=== PATIENT | female | born 1975 | race African-American/Black ===

== ENCOUNTER 2016-10-22 21:26 | Emergency (ER) | payer MEDICAID ==
[~2016-10-22] VITALS: Ht 170.2 cm; Wt 72.1 kg
[2016-10-22] MEDS ORDERED: KETOROLAC 60MG/2ML VIAL IM STA (22:29)
[2016-10-22 23:00] VITALS: BP 137/82
[2016-10-22 23:04] LABS: EOSINOPHILS % 0.6 % (0.0-5.0); HEMATOCRIT. 38.9 % (36.0-48.0); LYMPHOCYTES % 37.1 % (20.0-50.0); MEAN CORPUSCULAR HEMOGLOBIN 29.8 pg (28.0-32.0); MEAN CORPUSCULAR HGB CONC 33.5 g/dL (31.0-37.0); MEAN CORPUSCULAR VOLUME 88.8 fL (81.0-99.0); MONOCYTES % 4.6 % (2.0-8.0); NEUTROPHILS % 56.7 % (40.0-76.0); PLATELET 232 x1000/uL (130-400); RED BLOOD CELL COUNT 4.38 mill/uL (4.2-5.4); RED CELL DISTRIBUTION WIDTH 14.2 % (11.6-14.6); WHITE BLOOD COUNT 7.2 x1000/uL (4.5-11.0)
[2016-10-22 23:07] LABS: CHLORIDE 108 mEq/L (98-107)
[2016-10-22 23:08] LABS: CLARITY URINE CLOUDY (CLEAR); COLOR URINE YELLOW (YELLOW); GLUCOSE URINE NEGATIVE (NEGATIVE); KETONES URINE NEGATIVE (NEGATIVE); LEUKOCYTE ESTERASE URINE 3+ (NEGATIVE); NITRITE URINE POSITIVE (NEGATIVE); OCCULT BLOOD URINE 3+ (NEGATIVE); PH URINE 6.5 (4.5-8.0); PROTEIN URINE NEGATIVE (NEGATIVE); SPECIFIC GRAVITY URINE 1.011 (1.005-1.030)
[2016-10-22 23:09] LABS: HCG SCREEN NEGATIVE
[2016-10-22 23:12] LABS: ANION GAP 11; CALCIUM 8.9 mg/dL (8.5-10.1); CARBON DIOXIDE 28 mEq/L (21-32); INDEX HEMOLYSI 1 (1-3); INDEX ICTERIC 1 (1-4); INDEX LIPEMIC 1 (1-3); LIPASE 109 IU/L (73-393); UREA NITROGEN BLOOD 9 mg/dL (7-21)
[2016-10-22 23:14] LABS: eGFR > 60 mL/min (>60)
[2016-10-22 23:15] LABS: BACTERIA URINE 3+; SQUAMOUS EPITHELIAL CELL URINE FEW /lpf (RARE/1+); WBC URINE 50-100 /hpf (0-2)
[2016-10-22] MEDS ORDERED: CEPHALEXIN 500MG CAPSULE PO ONE (23:15)
== END 2016-10-23 00:30 | disposition home or self-care (01) ==
LOC: ER 21:31
DX: N39.0 Urinary tract infection, site not specified (principal); F15.10 Other stimulant abuse, uncomplicated
CPT/HCPCS: 36415; 80048; 81001; 83690; 84703; 85025; 96372; 99284; J1885

== ENCOUNTER 2017-04-18 08:30 | Emergency (ER) | payer MEDICAID ==
[~2017-04-18] VITALS: Ht 170.2 cm; Wt 61.0 kg
[2017-04-18 09:06] VITALS: BP 108/66
[2017-04-18 09:12] LABS: HEMATOCRIT. 40.6 % (36.0-48.0); HEMOGLOBIN. 13.7 g/dL (12.0-16.0); MEAN CORPUSCULAR HEMOGLOBIN 29.9 pg (28.0-32.0); MEAN CORPUSCULAR VOLUME 88.4 fL (81.0-99.0); MEAN PLATELET VOLUME 9.7 fl (7.4-10.4); PLATELET 181 x1000/uL (130-400); RED BLOOD CELL COUNT 4.59 mill/uL (4.2-5.4)
[2017-04-18] MEDS ORDERED: ONDANSETRON HCL 4MG/2ML VIAL IV ONE ×2 (09:15→11:30)
[2017-04-18] MEDS ORDERED: FAMOTIDINE 20MG/2ML VIAL IV ONE (09:15)
[2017-04-18] MEDS ORDERED: SODIUM CHLORIDE 0.9% 1,000 ML IV ONE (09:15)
[2017-04-18 09:19] LABS: CHLORIDE 103 mEq/L (98-107)
[2017-04-18 09:27] LABS: CARBON DIOXIDE 23 mEq/L (21-32)
[2017-04-18 09:36] LABS: CLARITY URINE CLEAR (CLEAR); COLOR URINE YELLOW (YELLOW); GLUCOSE URINE NEGATIVE (NEGATIVE); KETONES URINE NEGATIVE (NEGATIVE); LEUKOCYTE ESTERASE URINE TRACE (NEGATIVE); NITRITE URINE NEGATIVE (NEGATIVE); OCCULT BLOOD URINE TRACE (NEGATIVE); PH URINE >=9.0 (4.5-8.0); PROTEIN URINE NEGATIVE (NEGATIVE); SPECIFIC GRAVITY URINE 1.014 (1.005-1.030); UROBILINOGEN URINE 0.2 E.U./dL (0.2-1.0)
[2017-04-18 10:06] LABS: PLATELET ESTIMATE NORMAL
[2017-04-18] MEDS ORDERED: ACETAMINOPHEN 500MG TABLET PO ONE (11:30)
== END 2017-04-18 11:45 | disposition home or self-care (01) ==
LOC: ER 08:38
DX: K52.9 Noninfective gastroenteritis and colitis, unspecified (principal); K21.9 Gastro-esophageal reflux disease without esophagitis; Q61.3 Polycystic kidney, unspecified; F17.210 Nicotine dependence, cigarettes, uncomplicated; F15.10 Other stimulant abuse, uncomplicated
CPT/HCPCS: 36415; 76705; 80053; 81001; 81025; 83690; 85025; 96361; 96374; 96375; 99285; J2405; J3490; J7030

== ENCOUNTER 2018-09-25 17:14 | Emergency (ER) | payer MEDICAID ==
[~2018-09-25] VITALS: Ht 170.2 cm; Wt 64.0 kg
[2018-09-25 17:33] VITALS: BP 139/88
== END 2018-09-25 22:42 | disposition left against medical advice (07) ==
LOC: ER 17:14
DX: Z53.21 Procedure and treatment not carried out due to patient leaving prior to being seen by health care provider (principal)

== ENCOUNTER 2018-09-26 21:15 | Emergency (ER) | payer MEDICAID ==
[~2018-09-26] VITALS: Ht 170.2 cm; Wt 66.0 kg
[2018-09-26] MEDS ORDERED: ACETAMINOPHEN 325MG TABLET PO ONE (23:00)
[2018-09-26 23:25] LABS: COLOR URINE YELLOW (YELLOW); KETONES URINE NEGATIVE (NEGATIVE); LEUKOCYTE ESTERASE URINE 1+ (NEGATIVE); NITRITE URINE POSITIVE (NEGATIVE); OCCULT BLOOD URINE 3+ (NEGATIVE); PROTEIN URINE NEGATIVE (NEGATIVE); UROBILINOGEN URINE 0.2 E.U./dL (0.2-1.0)
[2018-09-26 23:34] LABS: BASOPHILS % 1.3 % (0.0-2.0); HEMATOCRIT. 39.1 % (36.0-48.0); HEMOGLOBIN. 12.6 g/dL (12.0-16.0); MEAN CORPUSCULAR HEMOGLOBIN 29.3 pg (28.0-32.0); MEAN CORPUSCULAR VOLUME 90.8 fL (81.0-99.0); MEAN PLATELET VOLUME 9.8 fl (7.4-10.4); MONOCYTES % 4.9 % (2.0-8.0); NEUTROPHILS % 45.8 % (40.0-76.0); PLATELET 203 x1000/uL (130-400); RED BLOOD CELL COUNT 4.31 mill/uL (4.2-5.4); RED CELL DISTRIBUTION WIDTH 14.7 % (11.6-14.6)
[2018-09-26 23:34] LABS: CLARITY URINE HAZY (CLEAR)
[2018-09-26 23:42] LABS: CHLORIDE 109 mEq/L (98-107)
[2018-09-26 23:50] LABS: C REACTIVE PROTEIN QUANT 0.3 mg/L (0.0-3.0); HCG SCREEN NEGATIVE
[2018-09-27] MEDS ORDERED: KETOROLAC 15MG/ML VIAL IV ONE (01:15)
[2018-09-27 03:59] VITALS: BP 145/94
== END 2018-09-27 04:00 | disposition home or self-care (01) ==
LOC: ER 21:15
DX: N93.8 Other specified abnormal uterine and vaginal bleeding (principal); F15.10 Other stimulant abuse, uncomplicated
CPT/HCPCS: 36415; 76856; 80053; 81003; 81025; 83690; 84702; 84703; 85025; 85610; 86140; 96374; 99284; J1885; Z7610

== ENCOUNTER 2020-01-17 13:25 | Emergency (ER) | payer MEDICAID ==
[~2020-01-17] VITALS: Ht 170.2 cm; Wt 75.0 kg
[2020-01-17 13:36] VITALS: BP 141/92
[2020-01-17 14:50] LABS: CLARITY URINE CLOUDY (CLEAR); COLOR URINE ORANGE (YELLOW); KETONES URINE NEGATIVE (NEGATIVE); LEUKOCYTE ESTERASE URINE 3+ (NEGATIVE); NITRITE URINE POSITIVE (NEGATIVE); OCCULT BLOOD URINE 3+ (NEGATIVE); PH URINE 5.5 (4.5-8.0); PROTEIN URINE 1+ (NEGATIVE); SPECIFIC GRAVITY URINE 1.015 (1.005-1.030); UROBILINOGEN URINE 0.2 E.U./dL (0.2-1.0)
[2020-01-17] MEDS ORDERED: AZITHROMYCIN 500 MG TABLET PO NR (15:30)
[2020-01-17] MEDS ORDERED: CEFTRIAXONE SODIUM 250 MG/VIAL IM NR (15:30)
[2020-01-17] MEDS ORDERED: LIDOCAINE HCL/PF 1% 10 MG/ML 5ML VIAL IJ NR (15:45)
[2020-01-17] MEDS ORDERED: ACETAMINOPHEN 325MG TABLET PO NR (16:00)
== END 2020-01-17 16:20 | disposition home or self-care (01) ==
LOC: ER 13:25
DX: N39.0 Urinary tract infection, site not specified (principal)
CPT/HCPCS: 81003; 81025; 87086; 96372; 99283; J0696; J3490

== ENCOUNTER 2021-03-06 14:41 | Emergency (ER) | payer MEDICAID ==
[~2021-03-06] VITALS: Ht 170.2 cm; Wt 77.0 kg
[2021-03-06] MEDS ORDERED: SODIUM CHLORIDE 0.9% 1,000 ML IV ONE (15:15)
[2021-03-06 15:38] LABS: CLARITY URINE CLEAR (CLEAR); COLOR URINE ORANGE (YELLOW); KETONES URINE NEGATIVE (NEGATIVE); LEUKOCYTE ESTERASE URINE 1+ (NEGATIVE); NITRITE URINE NEGATIVE (NEGATIVE); OCCULT BLOOD URINE 3+ (NEGATIVE); PH URINE 7.5 (4.5-8.0); PROTEIN URINE 1+ (NEGATIVE); SPECIFIC GRAVITY URINE 1.018 (1.005-1.030); UROBILINOGEN URINE 0.2 E.U./dL (0.2-1.0)
[2021-03-06 15:46] LABS: BASOPHILS % 1.6 % (0.0-2.0); EOSINOPHILS % 1.4 % (0.0-5.0); HEMATOCRIT. 37.4 % (36.0-48.0); LYMPHOCYTES % 39.8 % (20.0-50.0); MEAN CORPUSCULAR HEMOGLOBIN 30.4 pg (28.0-32.0); MEAN CORPUSCULAR VOLUME 87.5 fL (81.0-99.0); MEAN PLATELET VOLUME 9.5 fl (7.4-10.4); MONOCYTES % 6.2 % (2.0-8.0); PLATELET 230 x1000/uL (130-400); RED BLOOD CELL COUNT 4.27 mill/uL (4.2-5.4); RED CELL DISTRIBUTION WIDTH 14.3 % (11.6-14.6)
[2021-03-06 15:52] LABS: CHLORIDE 108 mEq/L (98-107)
[2021-03-06 16:16] LABS: B-HCG QUANTITATIVE 10587 mIU/mL (<3)
[2021-03-06 17:30] VITALS: BP 127/78
== END 2021-03-06 20:11 | disposition home or self-care (01) ==
LOC: ER 14:41
DX: O03.9 Complete or unspecified spontaneous abortion without complication (principal); F15.10 Other stimulant abuse, uncomplicated
CPT/HCPCS: 36415; 76801; 76817; 80053; 81003; 81025; 84702; 85025; 86850; 86900; 86901; 96360; 96361; 99284; J7030

== ENCOUNTER 2021-09-24 10:09 | Emergency (ER) | payer MEDICAID ==
[~2021-09-24] VITALS: Ht 170.2 cm; Wt 70.0 kg
[2021-09-24] MEDS ORDERED: IBUPROFEN 400MG TABLET PO ONE (12:45)
[2021-09-24 12:53] VITALS: BP 137/90
[2021-09-24] MEDS ORDERED: IBUP-2028 MT (15:10)
== END 2021-09-24 15:30 | disposition home or self-care (01) ==
LOC: ER 10:09
DX: S93.491A Sprain of other ligament of right ankle, initial encounter (principal); W10.9XXA Fall (on) (from) unspecified stairs and steps, initial encounter; Y93.39 Activity, other involving climbing, rappelling and jumping off; Y92.9 Unspecified place or not applicable
CPT/HCPCS: 29515; 73562; 73610; 99284

== ENCOUNTER 2022-11-06 14:38 | Emergency (ER) | payer MEDICAID ==
[~2022-11-06] VITALS: Ht 170.2 cm; Wt 65.8 kg
[~2022-11-06 14:38] MED LIST: IBUP-2028 MT
[2022-11-06 15:29] LABS: BASOPHILS % 0.8 % (0.0-2.0); EOSINOPHILS % 1.6 % (0.0-5.0); HEMATOCRIT. 40.4 % (36.0-48.0); HEMOGLOBIN. 13.1 g/dL (12.0-16.0); LYMPHOCYTES % 36.3 % (20.0-50.0); MEAN CORPUSCULAR VOLUME 86.1 fL (81.0-99.0); MEAN PLATELET VOLUME 8.8 fl (7.4-10.4); MONOCYTES % 2.6 % (2.0-8.0); NEUTROPHILS % 58.7 % (40.0-76.0); PLATELET 302 x1000/uL (130-400); RED CELL DISTRIBUTION WIDTH 15.8 % (11.6-14.6)
[2022-11-06 15:33] LABS: CHLORIDE 107 mEq/L (98-107)
[2022-11-06 18:48] LABS: CLARITY URINE CLEAR (CLEAR); COLOR URINE YELLOW (YELLOW); KETONES URINE NEGATIVE (NEGATIVE); LEUKOCYTE ESTERASE URINE 1+ (NEGATIVE); NITRITE URINE NEGATIVE (NEGATIVE); OCCULT BLOOD URINE NEGATIVE (NEGATIVE); PROTEIN URINE NEGATIVE (NEGATIVE); SPECIFIC GRAVITY URINE 1.005 (1.005-1.030); UROBILINOGEN URINE 0.2 E.U./dL (0.2-1.0)
[2022-11-06] MEDS ORDERED: IBUPROFEN 800MG TABLET PO ONE (19:45)
[2022-11-06] MEDS ORDERED: NITROFURANTOIN 100MG M/M CAPSULE PO ONE (19:45)
[2022-11-06] MEDS ORDERED: IBUPROFEN 400MG TABLET PO NR (20:00)
[2022-11-06] MEDS ORDERED: NITR-87 MT (21:05)
[2022-11-06 21:30] VITALS: BP 144/91
== END 2022-11-06 22:13 | disposition home or self-care (01) ==
LOC: ER 14:47
DX: O03.9 Complete or unspecified spontaneous abortion without complication (principal); N39.0 Urinary tract infection, site not specified; F19.90 Other psychoactive substance use, unspecified, uncomplicated; Z3A.01 Less than 8 weeks gestation of pregnancy
CPT/HCPCS: 36415; 76830; 76856; 80053; 81003; 83690; 84484; 84702; 85025; 99285; Z7610

== ENCOUNTER 2024-04-14 12:26 | Emergency (ER) | payer MEDICAID ==
[~2024-04-14] VITALS: Ht 175.3 cm; Wt 86.2 kg
[~2024-04-14 12:26] MED LIST changes: +NITR-87 MT
[2024-04-14 12:35] VITALS: O2SAT 98
[2024-04-14 13:00] LABS: BASOPHILS % 0.7 % (0.0-2.0); EOSINOPHILS % 0.4 % (0.0-5.0); HEMATOCRIT. 39.9 % (36.0-48.0); LYMPHOCYTES % 22.2 % (20.0-50.0); MEAN CORPUSCULAR HEMOGLOBIN 27.4 pg (28.0-32.0); MEAN CORPUSCULAR HGB CONC 32.5 g/dL (31.0-37.0); MEAN CORPUSCULAR VOLUME 84.5 fL (81.0-99.0); MEAN PLATELET VOLUME 8.4 fl (7.4-10.4); MONOCYTES % 4.9 % (2.0-8.0); NEUTROPHILS % 71.8 % (40.0-76.0); PLATELET 273 x1000/uL (130-400); RED BLOOD CELL COUNT 4.73 mill/uL (4.2-5.4); RED CELL DISTRIBUTION WIDTH 15.6 % (11.6-14.6); WHITE BLOOD COUNT 7.2 x1000/uL (4.5-11.0)
[2024-04-14 13:17] LABS: CHLORIDE 105 mEq/L (98-107); POTASSIUM 4.1 mEq/L (3.5-5.1); SODIUM 137 mEq/L (136-145)
[2024-04-14 13:18] LABS: CARBON DIOXIDE 27 mEq/L (21-32)
[2024-04-14 13:19] LABS: CALCIUM 9.8 mg/dL (8.7-10.4)
[2024-04-14] MEDS: ONDANSETRON 4MG ODT PO ONE (13:19)
[2024-04-14 13:23] LABS: GLUCOSE 105 mg/dL (70-105)
[2024-04-14 13:24] LABS: UREA NITROGEN BLOOD 8 mg/dL (9-23)
[2024-04-14 13:25] LABS: ALANINE AMINOTRANSFERASE 8 IU/L (10-49); ALBUMIN 4.7 g/dL (3.2-4.8); ASPARTATE AMINOTRANSFERASE 13 IU/L (<34); BILIRUBIN DIRECT 0.2 mg/dL (<=3.0)
[2024-04-14 13:26] LABS: BILIRUBIN TOTAL 0.8 mg/dL (0.1-1.0); PROTEIN TOTAL 7.9 g/dL (6.0-8.3)
[2024-04-14 14:48] LABS: CLARITY URINE CLOUDY (CLEAR); COLOR URINE YELLOW (YELLOW); GLUCOSE URINE NEGATIVE (NEGATIVE); KETONES URINE NEGATIVE (NEGATIVE); LEUKOCYTE ESTERASE URINE 3+ (NEGATIVE); NITRITE URINE NEGATIVE (NEGATIVE); OCCULT BLOOD URINE 1+ (NEGATIVE); PROTEIN URINE TRACE (NEGATIVE); SPECIFIC GRAVITY URINE 1.006 (1.005-1.030); UROBILINOGEN URINE 0.2 E.U./dL (0.2-1.0)
[2024-04-14 15:02] LABS: BACTERIA URINE 3+; RBC URINE 0-2 /hpf (0-2); SQUAMOUS EPITHELIAL CELL URINE 2+ /lpf (RARE/1+); WBC URINE 25-50 /hpf (0-2); YEAST URINE NONE SEEN
[2024-04-14] MEDS ORDERED: CEPH500C2 MT (15:14)
[2024-04-14 15:24] VITALS: BP 147/88; PULSE 94; RESP 18; TEMP 37.28076; O2SAT 100
== END 2024-04-14 15:29 | disposition home or self-care (01) ==
LOC: ER 12:26
DX: N39.0 Urinary tract infection, site not specified (principal); F15.90 Other stimulant use, unspecified, uncomplicated; R10.2 Pelvic and perineal pain; R35.0 Frequency of micturition
CPT/HCPCS: 36415; 80048; 80076; 81003; 81025; 85025; 87077; 87186; 99283; Q0162